=== PATIENT | male | born 1980 | race Caucasian/White ===

== ENCOUNTER 2021-05-05 20:52 | Observation (INO) | payer OTHER, SELFPAY ==
[2021-05-05] VITALS (7 sets, daily range): BP systolic 112–123; BP diastolic 66–73; PULSE 78–85; RESP 14–31; TEMP 37.6–39.1; O2SAT 87–96
--- NOTE | ~2021-05-05 | XR_ITS ---
EXAMINATION: XR chest 1V portable DATE: 05/05/2021 21:51 INDICATION: Cough, shortness of breath, chest burning fever and body aches. COVID positive. TECHNIQUE: frontal view of the chest was obtained. COMPARISON: Chest radiograph dated chest CT dated 08/10/2017 FINDINGS: Patchy bilateral airspace opacities throughout both lungs consistent with COVID pneumonia. No pleural effusion or pneumothorax. The cardiomediastinal silhouette is normal. IMPRESSION: 1. Patchy bilateral lung disease consistent with COVID pneumonia. Reviewed, dictated and finalized at location A.
--- NOTE | ~2021-05-05 | CT_ITS ---
EXAMINATION: CTA chest PE protocol DATE: 05/05/2021 22:50 INDICATION: Shortness of breath. COVID-19 pneumonia. TECHNIQUE: Computed tomography angiography (CTA) of the chest was performed with 100 mL Omnipaque-350 intravenous contrast timed to evaluate the pulmonary arteries. Coronal maximum intensity projection 3D-reconstructions were created by the technologist. Automated exposure control and iterative reconst ruction technique were employed. The dose-length product was 849.02 mGy-cm. COMPARISON: Chest CT 08/10/2017, chest single view 05/05/2021 FINDINGS: There are patchy airspace and groundglass opacities and crazy paving with air bronchograms involving all lobes. No pleural effusion. The heart size is normal. No pericardial effusion. There is no pulmonary embolus. There is mild thoracic spondylosis. IMPRESSION: 1. No pulmonary embolus. 2. Diffuse lung disease, consistent with COVID-19 pneumonia. Reviewed, dictated and finalized at location A.
--- NOTE | 2021-05-05 20:58 | ECG_ITS ---
Measurements Intervals [place] Rate: 82 P: 35 HI: 158 QRS: -15 QRSD: 106 T: 28 QT: 364 QTc: 426 Interpretive Statements SINUS RHYTHM BASELINE WANDER- III, AVR, AVL, AVF NORMAL ECG Electronically Signed On 05-06-2021 7:03:21 CDT by Que Dennison D.O.
--- NOTE | 2021-05-05 21:22 | ED.GENADULT ---
HPI - General Adult General Chief complaint: Upper Respiratory Infection Stated complaint: covid sx/ fever/ cough Source: RN notes reviewed History of Present Illness HPI narrative: Patient presents emergency department from home for COVID-19. Patient states he began to feel bad 2 days ago with a cough and shortness of breath he states he took a home Covid test yesterday that was positive he states he called EMS today because he is feeling more short of breath when EMS arrived 90% on room air patient notes fevers at home with last Tylenol several hours ago as well as the cough he states he did not receive the Covid vaccination he denies any chest pain abdominal pain nausea vomiting Related Data Home Medications Medication Instructions Recorded Confirmed No Home Medications 05/05/21 05/05/21 Allergies Allergy/AdvReac Type Severity Reaction Status Date / Time No Known Allergies Allergy Verified 05/05/21 21:14 Review of Systems Review of Systems: Gen.: Reports fever ENT: Denies congestion Respiratory: See HPI CV: Denies chest pain or palpitations GI: Denies abdominal pain nausea, emesis or diarrhea Musculoskeletal: Denies back pain or muscle pain Neuro: Denies numbness, tingling, weakness or focal weakness Skin: Denies rash Except as documented, all other systems reviewed and negative [facility] Past Medical History Medical History (Updated 05/05/21 @ 23:30 by Pierre Goldberg DO) Patient denies significant medical history Social History Social History Smoking status: Former smoker Smoking end date: 09/01/09 Alcohol intake: current Exam Narrative: APPEARANCE: No acute distress, nontoxic, resting in bed EYES: EOMI HEENT: Normocephalic, atraumatic, OMM RESPIRATORY: No respiratory distress Clear to auscultation bilaterally with no rhonchi wheezing or rales. CARDIOVASCULAR: Regular rate and rhythm without murmurs rubs or gallops. ABDOMINAL: Soft, nontender, nondistended, no rebound or guarding MUSCULOSKELETAl: Moves all extremities. No clubbing, cyanosis or edema. NEURO: Awake and alert. Following commands, speech normal, no focal deficits SKIN:: Warm, dry. No rashes lesions or abrasions PSYCHIATRIC: Normal affect/mood, Course Course Emergency Course: Patient with walking pulse ox in ED with O2 saturations dropping down to 87% will admit Discussed Dr. Sneed presentation work-up agrees with admission at this time Discussed with patient and family results of workup and diagnosis. Discussed need for admission. Patient and family understand and agree to current treatment plan Vital Signs Vital signs: Vital Signs Temperature 102.3 F H 05/05/21 20:59 Pulse Rate 85 05/05/21 20:59 Respiratory Rate 24 H 05/05/21 20:59 Blood Pressure 114/73 05/05/21 20:59 Pulse Oximetry 91 05/05/21 20:59 Temperature 99.7 F H 05/05/21 22:59 Pulse Rate 78 05/05/21 22:59 Respiratory Rate 31 H 05/05/21 22:59 Blood Pressure 112/66 05/05/21 22:59 Pulse Oximetry 96 05/05/21 22:59 Medical Decision Making Vital Signs Vital Signs: Vital Signs Temperature 102.3 F H 05/05/21 20:59 Pulse Rate 85 05/05/21 20:59 Respiratory Rate 24 H 05/05/21 20:59 Blood Pressure 114/73 05/05/21 20:59 Pulse Oximetry 91 05/05/21 20:59 Temperature 99.7 F H 05/05/21 22:59 Pulse Rate 78 05/05/21 22:59 Respiratory Rate 31 H 05/05/21 22:59 Blood Pressure 112/66 05/05/21 22:59 Pulse Oximetry 96 05/05/21 22:59 Lab Data Result diagrams: 05/05/21 21:19 05/05/21 21:19 Labs: Lab Results 05/05/21 05/05/21 05/05/21 Range/Units 21:19 21:19 21:19 WBC 3.1 L (4.5-10.0) K/mm3 RBC 4.35 L (4.6-6.20) M/mm3 Hgb 13.0 L (14.0-18.0) g/dL Hct 38.7 L (42.0-52.0) % MCV 89.0 (80-100) fl MCH 29.9 (26-34) pg MCHC 33.6 (32-36) g/dl RDW 12.4 (11.5-14.5) % Plt Count 150 (
[2021-05-05 21:29] LABS: Basophils Percent Auto 0.3 % (0.2-1.2); Hematocrit 38.7 % (42.0-52.0); Immature Granulocyte Absolute 0.01 K/mm3 (0.00-0.031); Immature Granulocyte Percent A 0.3 % (0-0.5); Immature Platelet Fraction Pct 6.2 % (0.9-11.2); Lymphocytes Absolute Auto 0.58 K/mm3 (0.9-3.2); Lymphocytes Percent Auto 18.8 % (18.3-44.2); Mean Corpuscular HGB Conc 33.6 g/dl (32-36); Mean Corpuscular Hemoglobin 29.9 pg (26-34); Mean Platelet Volume 10.9 fl (7.4-10.4); Monocytes Absolute Auto 0.1 K/mm3 (0.1-0.6); Monocytes Percent Auto 3.9 % (2.6-8.5); Neutrophils Absolute Auto 2.4 K/mm3 (1.3-6.7); Neutrophils Percent Auto 76.7 % (45.5-73.1); Platelet Count Result 150 k/mm3 (150-375); Red Blood Count 4.35 M/mm3 (4.6-6.20); Red Cell Distribution Width 12.4 % (11.5-14.5); White Blood Count 3.1 K/mm3 (4.5-10.0)
[2021-05-05 21:35] LABS: INR 0.8; Prothrombin Time 11.5 Seconds (11.1-14.7)
[2021-05-05 21:36] LABS: Partial Thromboplastin Time 37.8 SECONDS (22.3-36.8)
[2021-05-05 21:40] LABS: Alanine Aminotransferase 43 U/L (4-50); Albumin Level 3.9 g/dL (3.5-5.1); Alkaline Phosphatase 55 U/L (38-126); Anion Gap 6 mmol/L (8-16); Aspartate Amino Transferase 76 U/L (17-59); Bilirubin,Total 0.4 mg/dL (0.2-1.3); Blood Urea Nitrogen 12 mg/dL (9-20); Calcium 8.4 mg/dL (8.4-10.2); Carbon Dioxide 27 mmol/L (22-30); Chloride 103 mmol/L (98-107); Estimated CRCL calculation 165 ml/min; Estimated Glomerular Filt Rate > 60; Glucose 126 mg/dL (65-110); Lactate Dehydrogenase 899 U/L (313-618); Potassium 3.8 mmol/L (3.4-5.0); Sodium 136 mmol/L (137-145)
[2021-05-05 21:50] LABS: CRP 13.8 mg/dL (<1.0); D Dimer 0.52 ug/mL (<0.48)
[2021-05-05] MEDS: IBUPROFEN 600 MG TABLET PO (23:03)
[2021-05-06] VITALS (15 sets, daily range): BP systolic 108–132; BP diastolic 59–79; PULSE 60–88; RESP 18–20; TEMP 36.3–38.3; O2SAT 82–98; BMI 30.4
[2021-05-06] MEDS: ACETAMINOPHEN 500 MG TABLET 1000 MG PO ×2 (01:24→14:36)
--- NOTE | 2021-05-06 04:00 | PM.IMHP ---
H&P: HPI History of Present Illness Date/Time: 05/06/21 04:00 Chief Complaint: Shortness of breath Narrative: This is a 41-year-old male with past medical history nonsignificant he presented to the emergency room due to shortness of breath, cough ,generalized malaise ,body aches and pains ,poor appetite, fevers, chills, rigors ,some nausea but no vomiting no abdominal pain no diarrhea. Patient states that he tested positive for COVID with his two kids with the COVID kit at home and that was the day before today he presented to the emergency room with above complaints he had been taking Tylenol at home but felt that he needed to get some help. Preliminary workup was significant for diffuse infiltrates present on CT of chest as well as chest x-ray he was negative for pulmonary embolism. He arrived via EMS Review of Systems Review of Systems: Shortness of breath cough generalized malaise body aches and pain Constitutional: Constitutional: Reports chills, Reports fatigue, Reports fever(s), Reports lethargy, Reports malaise, Reports poor appetite and Reports weakness Eyes: Eyes: Denies change in vision ENT: Denies dysphagia, Denies nasal congestion, Denies nasal discharge, Denies nasal obstruction and Denies odynophagia Cardiovascular: Cardiovascular: Denies chest pain, Denies claudication, Denies lightheadedness, Denies radiating jaw, neck or arm pain, Denies palpitations and Denies orthopnea Respiratory: Respiratory: Reports cough and Reports dyspnea Gastrointestinal: Gastrointestinal: Denies dyspepsia, Denies heartburn, Denies diarrhea, Reports nausea and Denies vomiting Genitourinary: Genitourinary: Reports no additional male genitourinary complaints Musculoskeletal: Musculoskeletal: Reports myalgias Integumentary/Breasts: Skin/Breast: Reports system reviewed and no additional complaints, except as docu Neurologic: Reports system reviewed and no additional complaints, except as documented Psychiatric: Psychiatric: Reports no additional psychiatric complaints Endocrine: Endocrine: Reports no additional endocrine complaints Hematologic/Lymphatic: Hematologic/Lymphatic: Reports no additional hematologic/lymphatic complaints Allergic/Immunologic: Allergic/Immunologic: Reports no additional allergic/immunologic complaints PMFSH Past Medical History Medical History (Updated 05/06/21 @ 04:09 by Mauro Ashton MD) Patient denies significant medical history Social History Social History Smoking status: Former smoker Alcohol intake: never Substance use: never Spiritual care concerns: No Meds Home Medications and Allergies Home Medications Medication Instructions Recorded Confirmed Type Kratom 1 tablet PO DAILY 05/06/21 05/06/21 History Allergies Allergy/AdvReac Type Severity Reaction Status Date / Time No Known Allergies Allergy Verified 05/05/21 21:14 Vital Signs Vital Signs - 24 hr 05/05/21 20:59 05/05/21 21:15 05/05/21 22:00 Temperature 102.3 F H Pulse Rate 85 78 Respiratory Rate 24 H 14 Blood Pressure 114/73 Pulse Oximetry 91 91 05/05/21 22:42 05/05/21 22:59 05/05/21 23:30 Temperature 99.7 F H 99.7 F H Pulse Rate 85 78 Respiratory Rate 28 H 31 H Blood Pressure 112/66 Pulse Oximetry 87 L 96 05/05/21 23:53 05/06/21 00:10 05/06/21 00:43 Temperature 99.6 F 101.0 F H Pulse Rate 78 78 Respiratory Rate 24 H 18 18 Blood Pressure 123/70 116/62 Pulse Oximetry 92 92 92 05/06/21 01:00 05/06/21 01:24 Temperature 101.0 F H 101 F H Pulse Rate Respiratory Rate Blood Pressure 116/62 Pulse Oximetry Exam Narrative: Laying in anil Const: General: cooperative, comfortable, no acute distress, well developed, alert, awake and ill appearing acutely Nutritional Appearance: average body habitus Orientation/consciousness: patient oriented x3 HENMT: Head: normal to inspection, normocephalic and
[2021-05-06] MEDS: REMDESIVIR 200 MG/NS 250 ML 200 MG/250 ML BAG 250 MG IVPB (04:48)
[2021-05-06 04:56] LABS: Basophils Percent Auto 0.3 % (0.2-1.2); Hematocrit 41.2 % (42.0-52.0); Hemoglobin 13.4 g/dL (14.0-18.0); Immature Granulocyte Absolute 0.02 K/mm3 (0.00-0.031); Immature Granulocyte Percent A 0.5 % (0-0.5); Lymphocytes Absolute Auto 0.72 K/mm3 (0.9-3.2); Lymphocytes Percent Auto 18.2 % (18.3-44.2); Mean Corpuscular HGB Conc 32.5 g/dl (32-36); Mean Corpuscular Hemoglobin 29.5 pg (26-34); Mean Corpuscular Volume 90.7 fl (80-100); Mean Platelet Volume 11.1 fl (7.4-10.4); Monocytes Absolute Auto 0.1 K/mm3 (0.1-0.6); Monocytes Percent Auto 3.5 % (2.6-8.5); Neutrophils Absolute Auto 3.1 K/mm3 (1.3-6.7); Neutrophils Percent Auto 77.5 % (45.5-73.1); Platelet Count Result 145 k/mm3 (150-375); Red Blood Count 4.54 M/mm3 (4.6-6.20); Red Cell Distribution Width 12.5 % (11.5-14.5)
[2021-05-06 05:06] LABS: Alanine Aminotransferase 48 U/L (4-50); Albumin Level 4.1 g/dL (3.5-5.1); Alkaline Phosphatase 60 U/L (38-126); Anion Gap 8 mmol/L (8-16); Aspartate Amino Transferase 79 U/L (17-59); Bilirubin,Total 0.4 mg/dL (0.2-1.3); Blood Urea Nitrogen 12 mg/dL (9-20); Calcium 8.9 mg/dL (8.4-10.2); Carbon Dioxide 28 mmol/L (22-30); Chloride 102 mmol/L (98-107); Estimated CRCL calculation 146 ml/min; Estimated Glomerular Filt Rate > 60; Glucose 143 mg/dL (65-110); Potassium 4.6 mmol/L (3.4-5.0); Sodium 138 mmol/L (137-145)
[2021-05-06 05:12] LABS: INR 0.8; Prothrombin Time 11.4 Seconds (11.1-14.7)
[2021-05-06] MEDS: ENOXAPARIN 40 MG/0.4 ML SYRINGE SUB-Q ×2 (08:33→20:58)
[2021-05-06] MEDS: DEXAMETHASONE SOD PHOS INJ 4 MG/ML VIAL 6 MG IV PUSH (08:34)
[2021-05-06] MEDS: SODIUM CHLORIDE 0.9% IV 250 ML 30 ML IV CONT (10:58)
--- NOTE | 2021-05-06 11:56 | PM.IMPN ---
Progress Note: A&P Assessment and Plan (1) Pneumonia due to COVID-19 virus: Code(s): U07.1 - COVID-19; J12.82 - Pneumonia due to coronavirus disease 2019 Status: Acute Assessment and Plan: Tested positive without home test on 05/04/2021. He was exposed to COVID at his [employer] football draft and several others also have COVID. CTA demonstrated extensive multifocal bilateral pneumonia consistent with COVID-19. He is maintaining adequate oxygen saturations >92% on room air Received convalescent plasma per admitting provider on 05/06. Given he is not requiring supplemental O2, dexamethasone and remdesivir is not indicated at this time and will discontinue. Supportive care to include bronchodilators, expectorants, antipyretics, incentive spirometry Trend inflammatory markers Continue with isolation precautions He is not vaccinated. He was planning on getting his vaccine on 05/04 but unfortunately contracted COVID instead. Educated him he is eligible for vaccine within 90 days from onset of illness. Hopeful discharge tomorrow if continued improvement. (2) Elevated fasting glucose: Code(s): R73.01 - Impaired fasting glucose Status: Acute Assessment and Plan: Fasting glucose noted to be elevated this morning at 143. This is likely due to steroids. However, it appears random glucose at presentation was also slightly elevated. Check A1c Subjective Date/time seen: 05/06/21 11:56 Interval history: Date of service: 05/06/2021 Jah Fam is a healthy 41-year-old male who is seen in follow-up for COVID-19 pneumonia. He is feeling very poorly. He endorses dyspnea at rest and significant [place]. He is completely winded after getting up and walking from the bathroom. He is coughing frequently. Cough is nonproductive. He tells me he does not feel that he could safely return home given his severe shortness of breath. He denies anosmia or dysgeusia. His appetite is good. Denies nausea or vomiting. Denies fever or chills. He endorses intermittent abdominal discomfort as well as diarrhea. Denies body aches, muscle aches, or joint pain. Review of Systems Review of Systems: All systems reviewed & are unremarkable except as noted in HPI and below Exam Narrative: Mr. Fam is a well-nourished, well-appearing 41-year-old male who is lying supine in bed. He appears comfortable and is in NARD. Neuro: awake, alert and oriented x4, speech clear, no focal neuro deficits noted HEENMT: normocephalic, atraumatic, EOMI, sclerae anicteric, moist oral mucosa Neck: supple, no lymphadenopathy Respiratory: diminished breath sounds bilaterally, nonlabored breathing, hacking cough Cardio: regular rate, regular rhythm with S1-S2 Abdomen: nondistended, normoactive bowel sounds, soft, nontender to palpation Extremities: no edema, erythema, or tenderness to palpation, DP pulses 2+ bilaterally Skin: no rashes or lesions, warm and dry Psych: appropriate mood and affect, judgment and insight intact Objective Data Vital Signs Vital Signs: Vital Signs - 24 hr 05/05/21 20:59 05/05/21 21:15 05/05/21 22:00 Temperature 102.3 F H Pulse Rate 85 78 Respiratory Rate 24 H 14 Blood Pressure 114/73 Pulse Oximetry 91 91 05/05/21 22:42 05/05/21 22:59 05/05/21 23:30 Temperature 99.7 F H 99.7 F H Pulse Rate 85 78 Respiratory Rate 28 H 31 H Blood Pressure 112/66 Pulse Oximetry 87 L 96 05/05/21 23:53 05/06/21 00:10 05/06/21 00:43 Temperature 99.6 F 101.0 F H Pulse Rate 78 78 Respiratory Rate 24 H 18 18 Blood Pressure 123/70 116/62 Pulse Oximetry 92 92 92 05/06/21 01:00 05/06/21 01:24 05/06/21 04:00 Temperature 101.0 F H 101 F H 98.3 F Pulse Rate 60 Respiratory Rate 18 Blood Pressure 116/62 111/70 Pulse Oximetry 91 05/06/21 08:00 05/06/21 10:37 05/06/21 10:42 Temperature 97.6 F 98.8 F 98.8 F Pulse Rate 64 73 73 Respiratory Rate 20 20 20 Blood Pressure 132
[2021-05-06] MEDS: ALBUTEROL SULFATE (*SP) INHALER 2 PUFF INHALATION (12:13)
[2021-05-06] MEDS: LORazepam (*CRX) 0.5 MG TABLET PO (16:53)
[2021-05-06] MEDS: guaiFENesin 12 HR 600 MG TABCR PO (20:58)
[2021-05-07] VITALS: BP 130/80; PULSE 80; RESP 18; TEMP 36.3; O2SAT 93
[2021-05-07] MEDS: LORazepam (*CRX) 0.5 MG TABLET PO ×2 (01:22→11:08)
[2021-05-07] MEDS: ACETAMINOPHEN 500 MG TABLET 1000 MG PO ×2 (01:22→11:08)
[2021-05-07 04:00] VITALS: BP 130/79; PULSE 80; RESP 18; TEMP 36.8; O2SAT 94
[2021-05-07 07:30] LABS: Hematocrit 39.5 % (42.0-52.0); Hemoglobin 13.3 g/dL (14.0-18.0); Mean Corpuscular HGB Conc 33.7 g/dl (32-36); Mean Corpuscular Hemoglobin 30.3 pg (26-34); Mean Platelet Volume 10.5 fl (7.4-10.4); Platelet Count Result 165 k/mm3 (150-375); Red Blood Count 4.39 M/mm3 (4.6-6.20); Red Cell Distribution Width 12.1 % (11.5-14.5)
[2021-05-07 07:35] LABS: INR 0.9; Prothrombin Time 12.1 Seconds (11.1-14.7)
[2021-05-07 07:44] LABS: Hemoglobin A1C 5.4 % (<5.7)
[2021-05-07 07:49] LABS: Alanine Aminotransferase 54 U/L (4-50); Albumin Level 3.8 g/dL (3.5-5.1); Alkaline Phosphatase 61 U/L (38-126); Anion Gap 8 mmol/L (8-16); Aspartate Amino Transferase 82 U/L (17-59); Bilirubin,Total 0.4 mg/dL (0.2-1.3); Blood Urea Nitrogen 15 mg/dL (9-20); CRP 4.9 mg/dL (<1.0); Calcium 8.9 mg/dL (8.4-10.2); Carbon Dioxide 27 mmol/L (22-30); Chloride 106 mmol/L (98-107); Estimated CRCL calculation 146 ml/min; Estimated Glomerular Filt Rate > 60; Glucose 112 mg/dL (65-110); Lactate Dehydrogenase 997 U/L (313-618); Potassium 4.1 mmol/L (3.4-5.0); Sodium 141 mmol/L (137-145)
[2021-05-07 08:00] VITALS: BP 119/76; PULSE 74; RESP 18; TEMP 36.6; O2SAT 94
[2021-05-07] MEDS: guaiFENesin 12 HR 600 MG TABCR PO (10:06)
[2021-05-07] MEDS: ENOXAPARIN 40 MG/0.4 ML SYRINGE SUB-Q (10:06)
[2021-05-07 12:00] VITALS: BP 104/64; PULSE 79; RESP 18; TEMP 37.4; O2SAT 92
[2021-05-07 12:30] VITALS: TEMP 36.9
--- NOTE | 2021-05-07 14:02 | PM.DS ---
DS: Admitting Diagnosis Admitting Diagnosis COVID-19 DS: Discharge Diagnosis Discharge Diagnosis (1) Pneumonia due to COVID-19 virus: Code(s): U07.1 - COVID-19; J12.82 - Pneumonia due to coronavirus disease 2019 Status: Acute Assessment and Plan: Tested positive with home test on 05/04/2021. He was exposed to COVID at his [employer] football draft and several others also had COVID. CTA demonstrated extensive multifocal bilateral pneumonia consistent with COVID-19. He maintained adequate oxygenation on room air. He did have 1 episode where he desaturated to 82% with ambulation but O2 sats promptly improved with rest and he did not require supplemental O2. He was able to ambulate around his room on day of discharge without desaturation and had no indication for home oxygen. Received convalescent plasma per admitting provider on 05/06. Given lack of supplemental oxygen requirements, he did not meet criteria for treatment including dexamethasone or remdesivir. This was discontinued on 05/06/2021. Supportive care provided including bronchodilators, expectorants, antipyretics, incentive spirometry. Low-grade fevers resolved. Patient is not vaccinated. He was planning on getting his vaccine on 05/04 but unfortunately contracted COVID-19 and was not able to do so. Educated him that he is eligible for vaccine 90 days following onset of illness. (2) Elevated fasting glucose: Code(s): R73.01 - Impaired fasting glucose Status: Acute Assessment and Plan: Fasting glucose noted to be elevated at 143. This is likely due to steroids. However, he also had a slightly elevated random glucose prior to initiation of steroids. Because of this, A1c was evaluated and was found to be within normal limits at 5.4. (3) Anxiety: Code(s): F41.9 - Anxiety disorder, unspecified Status: Acute Assessment and Plan: Patient was acutely anxious regarding his illness and symptoms. He reported that he was terrified that he would not be able to catch his breath and this made him anxious. Short course of buspirone prescribed and he will follow-up with his PCP regarding anxiety. DS: Summary Hospital Course Hospital Course: Date of admission: 05/05/2021 Date of discharge: 05/07/2021 Jah Fam is a healthy 41-year-old male who presented to the emergency department on 05/05/2021 with complaints of shortness of breath after tested positive for COVID-19 at home wanted quiet. On presentation to the emergency department, he was febrile at 102.3F, additional vital signs stable, he was not hypoxic, and CTA showed diffuse lung disease consistent with COVID-19 pneumonia and was negative for pulmonary embolism. He was admitted to the hospitalist service for further evaluation and management. Please see above for further details. His symptoms improved significantly and he was not hypoxic. Given lack of need for supplemental oxygen and symptomatic improvement, he was determined to no longer require inpatient care and was felt to be stable for discharge. He felt comfortable with plans for return home. We talked about the necessary isolation precautions. I educated him on additional measures to help slow the spread of COVID-19. He was educated on worrisome signs and symptoms for which to return and he was educated on his medications. He will follow-up with his primary care provider within 1 week. He was discharged in hemodynamically stable condition on 05/07/2021 Status at Discharge Functional status at discharge: independent ambulation Overall status at discharge: patient is progressing back to baseline Time Spent with Patient Time attestation: Total time spent providing and/or coordinating discharge services: 45 minutes Time spent: Greater than 30 minutes Exam Narrative: Mr. Fam is a well-nourished, well-appearing 41-year-old male who is lying supine in bed. He appears comfortable and is in NARD.
== END 2021-05-07 15:40 | disposition home or self-care (01) ==
LOC: ANHED 22:00 → ANH3MEDSUR 23:11
PROVIDERS: Physician Assistant; Admitting Provider Internal Medicine; Emergency Provider Emergency Medicine; PCP Family Medicine; Visit Provider Family Medicine
DX: U07.1 COVID-19 (principal); J12.82 Pneumonia due to coronavirus disease 2019; R06.02 Shortness of breath; R53.1 Weakness; Z87.891 Personal history of nicotine dependence; R73.01 Impaired fasting glucose; F41.9 Anxiety disorder, unspecified
CPT/HCPCS: 36415; 36430; 71045; 71275; 80053; 83036; 83615; 85025; 85027; 85055; 85380; 85610; 85730; 86140; 86900; 86901; 87040; 93005; 96361; 96365; 96366; 96368; 96372; 96374; 96375; 96376; 99285; A9270; G0378; J0456; J0696; J1100; J1650; J7050; P9059; Q9967